=== PATIENT | female | born 1985 | race Caucasian/White ===

== ENCOUNTER → 2016-07-26 | Outpatient (CLI) | payer BC ==
--- NOTE | 2016-07-26 16:16 | KCIC ---
PROCEDURE Two-view chest HISTORY Right lateral chest pain, increasing the last couple of days. COMPARISON None FINDINGS The cardiac silhouette appears mildly enlarged. No evidence of vascular congestion. No evidence of pneumothorax. Minimal patchy opacities identified in the posterior lung bases slightly greater on the right but no dense airspace consolidation. There is mild blunting of the right costophrenic angle on the PA image suggesting a tiny pleural effusion. IMPRESSION 1. Mild enlargement of the cardiac silhouette, compatible with cardiomegaly. Pericardial effusion could also be considered. 2. Tiny right pleural effusion. 3. Minimal infiltrate or atelectasis in the posterior lung bases, particularly on the right. Electronically signed by: Avila Cueva MD (Jul 26, 2016 16:15:00)
== END | disposition home or self-care (01) ==
LOC: KCIC 14:41
PROVIDERS: ATTEND Internal Medicine Nephrology
DX: L93.2 Other local lupus erythematosus (principal); R07.9 Chest pain, unspecified; J90 Pleural effusion, not elsewhere classified; K76.89 Other specified diseases of liver; J98.11 Atelectasis
CPT/HCPCS: 71020